=== PATIENT | male | born 2000 | race Hispanic/Latino ===

== ENCOUNTER 2021-02-18 18:04 | Emergency (ER) | payer SELFPAY ==
[~2021-02-18] VITALS: Ht 170.2 cm; Wt 54.4 kg
[2021-02-18] MEDS ORDERED: HYDROCODONE/APAP 10MG-325MG TAB PO ONE (23:15)
[2021-02-19] MEDS ORDERED: TETANUS/DIPHTHERIA TOX ADULT 0.5 ML SYR IM ONE (02:15)
[2021-02-19] MEDS ORDERED: BACITRACIN ZINC 0.9GM TP ONE ×2 (02:19→02:30)
[2021-02-19] MEDS ORDERED: TETANUS/DIPHTHERIA TOX ADULT 0.5 ML SYR ONE (02:19)
[2021-02-19 02:35] VITALS: BP 124/62
== END 2021-02-19 02:36 | disposition home or self-care (01) ==
LOC: ER 18:50
DX: S71.111A Laceration without foreign body, right thigh, initial encounter (principal); W29.3XXA Contact with powered garden and outdoor hand tools and machinery, initial encounter
CPT/HCPCS: 90471; 90714; 99283